=== PATIENT | male | born 1980 | race Caucasian/White ===

== ENCOUNTER 2016-06-08 18:37 | Emergency (ER) | payer MEDICARE ==
[2016-06-08 19:22] VITALS: BP 120/81
--- NOTE | 2016-06-08 19:59 | UC ---
Ear Complaint HPI - HPI Summary HPI Summary: RIGHT EAR DISCOMFORT X 2 DAYS CANNOT HEAR FROM HIS RIGHT EAR NO EAR PAIN NO UR SX - History of Current Complaint Chief Complaint: UCEar Stated Complaint: RIGHT EAR PAIN Time Seen by Provider: 06/08/16 19:42 Hx Obtained From: Patient Onset/Duration: Gradual Onset, Lasting Days - 2, Still Present Severity Initially: Moderate Severity Currently: Moderate Associated Signs/Symptoms: Positive: Hearing Loss - RIGHT EAR. Negative: Foreign Body Sensation, Trauma to Ear, Swelling @, URI Symptoms - Allergies/Home Medications Allergies/Adverse Reactions: Allergies Allergy/AdvReac Type Severity Reaction Status Date / Time Penicillins Allergy Unknown Unknown Verified 06/08/16 19:22 Reaction Details Home Medications: Home Medications Atorvastatin* [Lipitor*] 10 mg PO DAILY 06/08/16 [History Confirmed 06/08/16] Lisinopril TAB* [Prinivil TAB*] 10 mg PO DAILY 06/08/16 [History Confirmed 06/08] metFORMIN* [Glucophage*] 500 mg PO BID 06/08/16 [History Confirmed 06/08/16] PMH/Surg Hx/FS Hx/Imm Hx Endocrine History Of: Reports: Diabetes Cardiovascular History Of: Reports: Hypertension - Surgical History Surgical History: Yes Surgery Procedure, Year, and Place: glaucoma valves--bilat - Family History Known Family History: Negative: Diabetes - Social History Alcohol Use: None Substance Use Type: None Smoking Status (MU): Never Smoked Tobacco Household Exposure Type: Cigarettes - Immunization History Most Recent Influenza Vaccination: none Review of Systems Constitutional: Negative Skin: Negative ENT: Other - DIFFICULTY HEARING RIGHT EAR Respiratory: Negative Cardiovascular: Negative Gastrointestinal: Negative Genitourinary: Negative All Other Systems Reviewed And Are Negative: Yes Physical Exam Triage Information Reviewed: Yes Appearance: Well-Appearing, No Pain Distress, Well-Nourished Vital Signs: Initial Vital Signs Temp 97.7 F 06/08/16 19:16 Pulse 82 06/08/16 19:16 Resp 17 06/08/16 19:16 BP 120/81 06/08/16 19:16 Pulse Ox 100 06/08/16 19:16 Eye Exam: Normal ENT Exam: Normal ENT: Positive: Pharynx normal, TMs normal, Other: - CERUMEN IMPACTION R MORE THAN LEFT. Negative: Hearing grossly normal, Nasal congestion, Nasal drainage Neck: Positive: Supple, Nontender, No Lymphadenopathy Respiratory: Positive: Chest non-tender, Lungs clear, Normal breath sounds Cardiovascular: Positive: RRR, No Murmur, Pulses Normal Ear Complaint Course/Dx - Differential Dx/Diagnosis Provider Diagnoses: CERUMEN IMPACTION Discharge - Discharge Plan Condition: Stable Disposition: HOME Patient Education Materials: Cerumen Impaction (ED) Additional Instructions: FOLLOW UP NEEDED
== END 2016-06-08 19:58 | disposition home or self-care (01) ==
LOC: UCCORT 18:37
DX: H61.23 Impacted cerumen, bilateral (principal); I10 Essential (primary) hypertension; E11.9 Type 2 diabetes mellitus without complications; Z88.0 Allergy status to penicillin
CPT/HCPCS: 99203; G0463

== ENCOUNTER 2018-12-11 14:02 | Emergency (ER) | payer MEDICARE ==
--- OUTSIDE RECORDS SUMMARY | 2018-12-11 14:14 | XMS REPORT | Continuity of Care Document ---
:1980 External Reference #:[id number] Author Name Enrrique Martínez MD Address [address] [facility] [place] [address] Care Team Providers Name Role Phone Brigette Ashley MD. Care Team Information Diabetes Solutions Specialist Unavailable Sandeep Burch MD Primary Care Physician Unavailable Payers Date Identification Numbers Payment Provider Subscriber Policy Number: [id number] Medicare Part B Luigi Escobedo PayID: [id number] [address] [place] [address] Problems Active Problems Provider Date Open-angle glaucoma - borderline Enrrqiue Martínez MD Onset: 10/29/2018 Essential hypertension Enrrique Martínez MD Onset: 10/29/2018 Hypercholesterolemia Enrrique Martínez MD Onset: 10/29/2018 Type 2 diabetes mellitus Enrrique Martínez MD Onset: 10/29/2018 Social History Type Date Description Comments Sex Unknown Tobacco Use Start: Unknown Patient has never smoked Smoking Status Reviewed: 12/06/18 Patient has never smoked Allergies, Adverse Reactions, Alerts Active Allergies Reaction Severity Comments Date Penicillin 10/29/2018 Combigan 10/29/2018 Medications Active Medications SIG Qnty Indications Ordering Provider Date Ocuflox 1 drop in the 5units Enrrique Martínez, 10/29/2018 0.3% Solution right eye four MD times a day Pred Forte 1 drop right 10ml Enrrique Martínez, 10/29/2018 1% Suspension eye 4 x day Metformin HCL Burch, 1000mg Sandeep ESCOBEDO Tablets Lisinopril-Hydrochloro Burch, thiazide Sandeep ESCOBEDO 20-12.5mg Tablets Atorvastatin Calcium Burch, 10mg Sandeep ESCOBEDO Tablets Vital Signs Date Vital Result Comment 12/06/2018 8:51am Intraocular Pressure Right Eye 19 mmHg Tp 08:52 Am Intraocular Pressure Left Eye 16 mmHg Tp 08:52 Am 11/29/2018 9:11am Intraocular Pressure Right Eye 19 mmHg Tp 09:12 Am Intraocular Pressure Left Eye 15 mmHg 10/29/2018 9:22am Intraocular Pressure Right Eye 15 mmHg Intraocular Pressure Left Eye 9 mmHg tp 9:22 am Procedures Date Code Description Status 11/28/2018 09980 REM [place] Epith;W/Application Of Chelating Agent OD Completed 10/29/2018 16583 Exam Comprehensive, New PT Completed 09/15/2014 92294 Scleral Reinforce;W/Graft OD Completed 09/15/2014 87875 Removal Of Implanted Material,Post Segment;Extraocular OD Completed 09/15/2014 69520 Aqueous Shunt Extraocular Reservr Completed 08/31/2014 47821 Exam, Intermediate Est PT Completed 05/01/2013 07299 Scleral Reinforce;W/Graft OS Completed 05/01/2013 96834 Aqueous Shunt Extraocular Reservr Completed 04/25/2013 72420 Gonioscopy W/Med Diag Eval Completed 06/12/2012 05041 Gonioscopy W/Med Diag Eval Completed 06/12/2012 95722 Scleral Reinforce;W/Graft OD Completed 06/12/2012 45966 Aqueous Shunt Extraocular Reservr Completed Encounters Type Date Location Provider Dx Diagnosis Office Visit 09/07/2014 Main Office [place] U[facility]ia Devincentis 365.11 Glaucoma Primary 1:45p III Open Angle 365.73 Severe Stage Glaucoma Office Visit 06/12/2012 11:00a Main Office [place] 365.02 Glaucoma Gu[place]upe ESCOBEDO Anatomical Narrow Angle 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
--- OUTSIDE RECORDS SUMMARY | 2018-12-11 14:14 | XMS REPORT | Continuity of Care Document ---
:1980 External Reference #:[id number] Author Name Enrrique Martínez MD Address [address] [facility] [place] [address] Care Team Providers Name Role Phone Brigette Ashley MD. Care Team Information Recreation Superintendent Unavailable Sandeep Burch MD Primary Care Physician Unavailable Payers Date Identification Numbers Payment Provider Subscriber Policy Number: [id number] Medicare Part B Luigi Escobedo PayID: [id number] [address] [place] [address] Problems Active Problems Provider Date Open-angle glaucoma - borderline Enrrique Martínez MD Onset: 10/29/2018 Essential hypertension Enrrique [...] Ocuflox 1 drop in the 5units Enrrique Martínez 10/29/2018 0.3% Solution right eye four MD times a day Pred Forte 1 drop right 10ml Enrrique Martínez 10/29/2018 1% Suspension eye 4 x day Metformin HCL Burch, 1000mg Sandeep ESCOBEDO Tablets Lisinopril-Hydrochloro Burch, thiazide Sandeep ESCOBEDO 20-12.5mg Tablets Atorvastatin Calcium Burch, 10mg Sandeep ESCOBEDO Tablets Vital Signs Date Vital Result Comment 12/09/2018 2:15pm Intraocular Pressure Right Eye 17 mmHg Tp 02:15 PM Intraocular Pressure Left Eye 17 mmHg 12/06/2018 8:51am Intraocular Pressure Right Eye 19 mmHg Tp 08:52 Am Intraocular Pressure Left Eye 16 mmHg Tp 08:52 Am 11/29/2018 9:11am Intraocular Pressure Right Eye 19 mmHg Tp 09:12 Am Intraocular Pressure Left Eye 15 mmHg 10/29/2018 9:22am Intraocular Pressure Right Eye 15 mmHg Intraocular Pressure Left Eye 9 mmHg tp 9:22 am Procedures Date Code Description Status 11/28/2018 06118 REM [place] Epith;W/Application Of Chelating Agent OD Completed 10/29/2018 27566 Exam Comprehensive, New PT Completed 09/15/2014 65060 Scleral Reinforce;W/Graft OD Completed 09/15/2014 12233 Removal Of Implanted Material,Post Segment;Extraocular OD Completed 09/15/2014 37213 Aqueous Shunt Extraocular Reservr Completed 08/31/2014 96448 Exam, Intermediate Est PT Completed 05/01/2013 45992 Scleral Reinforce;W/Graft OS Completed 05/01/2013 29021 Aqueous Shunt Extraocular Reservr Completed 04/25/2013 72141 Gonioscopy W/Med Diag Eval Completed 06/12/2012 91560 Gonioscopy W/Med Diag Eval Completed 06/12/2012 74407 Scleral Reinforce;W/Graft OD Completed 06/12/2012 77511 Aqueous Shunt Extraocular Reservr Completed Encounters Type Date Location Provider Dx Diagnosis Office Visit 09/07/2014 Main Office [place] [facility]ia DeVincentis 365.11 Glaucoma Primary 1:45p III Open Angle 365.73 Severe Stage Glaucoma Office Visit 06/12/2012 11:00a Main Office [facility] [place] 365.02 Glaucoma Guadalupe ESCOBEDO Anatomical Narrow Angle 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
--- OUTSIDE RECORDS SUMMARY | 2018-12-11 14:14 | XMS REPORT | Continuity of Care Document ---
:1980 External Reference #:[id number] Author Name Ernrique Martínez MD Address [address] [facility] [place] [address] Care Team Providers Name Role Phone Brigette Ashley MD. Care Team Information Seat Coverer Unavailable Sandeep Burch MD Primary Care Physician Unavailable Payers Date Identification Numbers Payment Provider Subscriber Policy Number: [id number] Medicare Part B Luigi Escobedo PayID: [id number] [address] [place] [address] Problems Active Problems Provider Date Open-angle glaucoma - borderline Enrrique Martínez MD Onset: 10/29/2018 Essential hypertension Enrrique Martínez MD Onset: 10/29/2018 Hypercholesterolemia Enrrique Martínez MD Onset: 10/29/2018 Type 2 diabetes mellitus Enrrique Martínez MD Onset: 10/29/2018 Social History Type Date Description Comments Sex Unknown Tobacco Use Start: Unknown Patient has never smoked Smoking Status Reviewed: 10/29/18 Patient has never smoked Allergies, Adverse Reactions, [...] Tablets Vital Signs Date Vital Result Comment 11/29/2018 9:11am Intraocular Pressure Right Eye 19 mmHg Tp 09:12 Am Intraocular Pressure Left Eye 15 mmHg 10/29/2018 9:22am Intraocular Pressure Right Eye 15 mmHg Intraocular Pressure Left Eye 9 mmHg tp 9:22 am Procedures Date Code Description Status 10/29/2018 26896 Exam Comprehensive, New PT Completed 09/15/2014 18245 Scleral Reinforce;W/Graft OD Completed 09/15/2014 26285 Removal Of Implanted Material,Post Segment;Extraocular OD Completed 09/15/2014 59845 Aqueous Shunt Extraocular Reservr Completed 08/31/2014 37249 Exam, Intermediate Est PT Completed 05/01/2013 28515 Scleral Reinforce;W/Graft OS Completed 05/01/2013 62949 Aqueous Shunt Extraocular Reservr Completed 04/25/2013 57235 Gonioscopy W/Med Diag Eval Completed 06/12/2012 88412 Gonioscopy W/Med Diag Eval Completed 06/12/2012 26660 Scleral Reinforce;W/Graft OD Completed 06/12/2012 81067 Aqueous Shunt Extraocular Reservr Completed Encounters Type Date Location Provider Dx Diagnosis Office Visit 09/07/2014 Main Office [place] [facility] Devincentis 365.11 Glaucoma Primary 1:45p III Open Angle 365.73 Severe Stage Glaucoma Office Visit 06/12/2012 11:00a Main Office [facility] [place] 365.02 Glaucoma Guadalupe ESCOBEDO Anatomical Narrow Angle 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
--- OUTSIDE RECORDS SUMMARY | 2018-12-11 14:15 | XMS REPORT | Continuity of Care Document ---
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 Obesity Onset: 03/17/2012 Ischemic heart disease Onset: 03/17/2012 Migraine with typical aura Onset: 12/11/2011 Nuclear senile cataract Onset: 12/11/2011 Social History Type Date Description Comments Sex Unknown Marital Status Single Lives With Father Lives With Older Brother Occupation Unemployed Tobacco Use Start: Unknown Never Smoked Cigarettes ETOH Use Denies alcohol use Tobacco Use Start: Unknown Patient has never smoked Smoking Status Reviewed: 11/15/18 Patient has never smoked Allergies, Adverse Reactions, Alerts Active Allergies Reaction Severity Comments Date Penicillins 05/17/2018 Medications Active Medications SIG Qnty Indications Ordering Provider Date Levothyroxine Sodium 1 by mouth every 30tabs E03.9 Sandeep 05/31/2018 day MD Marcin 25mcg Tablets Vitamin D 1 weekly 12caps Sandeep 05/17/2018 (Ergocalciferol) MD Marcin [id number] Capsules Metformin HCL 1 by mouth twice 60tabs E11.9 Sandeep 08/14/2017 1000mg a day MD Marcin Tablets Lisinopril-Hydrochloro 1 by mouth every 90tabs E11.9 Sandeep 11/17/2014 thiazide day MD Marcin 20-12.5mg Tablets Lipitor one tablet every 30tabs E78.0 Sandeep 12/18/2011 10mg Tablets evening MD Marcin Durezol Instill One Drop Unknown 0.05% Emulsion In Each Eye Once Daily Dorzolamide Instill One Drop Unknown HCL/Timolol Maleate In Each Eye Two Times A Day 22.3-6.8mg/ml Solution History Medications Levothyroxine Sodium 1 by mouth 30tabs Sandeep Burch 05/17/2018 - every day 05/31/2018 75mcg Tablets Levothyroxine Sodium 1 by mouth 30tabs Sandeep Burch 11/25/2017 - every day 02/13/2018 25mcg Tablets Levothyroxine Sodium 1 by mouth 30tabs Sandeep Burch 09/28/2017 - every day 11/25/2017 50mcg Tablets Lisinopril-Hydrochlor 1 by mouth 30tabs 250.00 Sandeep Burch 2013 - othiazide every day 11/17/2014 10-12.5mg Tablets Bleph-10 2 drops to 5units 372.00 Sandeep Burch 06/03/2012 - 10% Solution right eye 07/16/2012 every 6 hours as needed Lisinopril 1 po qd 30tabs 401.9 Sandeep Burch 06/03/2012 - 10mg Tablets 11/12/2013 Metformin HCL two in in the 90tabs E11.9 Sandeep Burch 12/18/2011 - 500mg morning and 08/14/2017 Tablets one in at night Bystolic one daily 30tabs 401.9 Sandeep Burch 12/18/2011 - 5mg Tablets 06/03/2012 Bromfenac Sodium Instill One Unknown - (Once-Daily) Drop In Each 08/14/2017 0.09% Eye Once Daily Solution Azopt Gabi - 1% Suspension MD Brigette 11/13/2017 Timolol Maleate Gabi - 0.5% MD Brigette 11/13/2017 Solution Immunizations CPT Code Status Date Vaccine Lot # [id number] Given 12/11/2011 Tdap - Tetanus/Diptheria/Acellular Pertussis Vital Signs Date Vital Result Comment 11/15/2018 10:39am Height 68 inches 5'8" Weight 219.00 lb Heart Rate 79 /min Body Temperature 97.0 F BMI (Body Mass Index) 33.3 kg/m2 07/24/2018 2:44pm Weight 220.00 lb BP Systolic 156 mmHg brought list BP Diastolic 100 mmHg brought list 05/31/2018 9:46am Height 68.5 inches 5'8.50" Weight 217.00 lb Heart Rate 70 /min BP Systolic 152 mmHg BP Diastolic 100 mmHg Respiratory Rate 16 /min O2 % BldC Oximetry 97 % BMI (Body Mass Index) 32.5 kg/m2 02/13/2018 11:26am Weight 214.00 lb BP Systolic 146 mmHg BP Diastolic 90 mmHg 11/13/2017 10:39am Weight 217.00 lb BP Systolic 120 mmHg BP Diastolic 68 mmHg 08/14/2017 11:27am Weight 222.00 lb BP Systolic 122 mmHg BP Diastolic 78 mmHg 05/16/2017 10:25am Height 68.50 inches Weight 218.00 lb Heart Rate 68 /min BP Systolic 110 mmHg BP Diastolic 82 mmHg Respiratory Rate 16 /min BMI (Body Mass Index) 32.7 kg/m2 02/01/2017 10:44am Weight 215.00 lb BP Systolic 120 mmHg BP Diastolic 80 mmHg 11/01/2016 10:30am Weight 213.00 lb BP Systolic 112 mmHg BP Diastolic 80 mmHg 08/01/2016 10:46am Weight 211.50 lb BP Systolic 110 mmHg BP Diastolic 72 mmHg 05/03/2016 10:37am Height 68.25 inches Weight 207.00 lb Heart Rate 64 /min BP Systolic 118 mmHg BP Diastolic 80 mmHg Respiratory Rate 16 /min Body Temperature 96.9 F BMI (Body Mass Index) 31.2 kg/m2 01/27/2016 11:08am Weight 207.00 lb BP Systolic 102 mmHg BP Diastolic 80 mmHg 10/28/2015 11:05am Weight 206.50 lb BP Systolic 98 mmHg BP Diastolic 80 mmHg 07/29/2015 10:32am Weight 197.00 lb BP Systolic 108 mmHg BP Diastolic 72 mmHg 04/29/2015 10:10am Height 68.25 inches Weight 198.00 lb Heart Rate 76 /min BP Systolic 128 mmHg BP Diastolic 82 mmHg Respiratory Rate 16 /min Body Temperature 97.2 F BMI (Body Mass Index) 29.9 kg/m2 02/17/2015 10:37am Weight 201.00 lb BP Systolic 110 mmHg BP Diastolic 82 mmHg 11/17/2014 10:39am Weight 199.00 lb BP Systolic 126 mmHg BP Diastolic 84 mmHg 08/18/2014 10:25am Weight 194.00 lb BP Systolic 106 mmHg BP Diastolic 80 mmHg 05/19/2014 11:18am Weight 192.00 lb BP Systolic 120 mmHg BP Diastolic 82 mmHg 02/12/2014 10:35am Weight 182.00 lb BP Systolic 122 mmHg BP Diastolic 70 mmHg 11/12/2013 11:15am Weight 180.00 lb BP Systolic 142 mmHg BP Diastolic 94 mmHg 04/28/2013 2:28pm Height 68 inches Weight 160.00 lb BP Systolic 110 mmHg BP Diastolic 90 mmHg Body Temperature 95.5 F BMI (Body Mass Index) 24.3 kg/m2 02/12/2013 10:45am Weight 173.00 lb BP Systolic 120 mmHg BP Diastolic 80 mmHg 11/12/2012 3:28pm Height 67.75 inches Weight 180.00 lb Heart Rate 72 /min BP Systolic 140 mmHg BP Diastolic 100 mmHg Respiratory Rate 16 /min Body Temperature 97.5 F BMI (Body Mass Index) 27.6 kg/m2 09/16/2012 12:55pm Weight 181.00 lb BP Systolic 120 mmHg BP Diastolic 88 mmHg 07/15/2012 12:52pm Weight 184.00 lb BP Systolic 120 mmHg BP Diastolic 60 mmHg 06/03/2012 1:03pm Weight 195.00 lb BP Systolic 146 mmHg BP Diastolic 90 mmHg 03/04/2012 1:20pm Weight 205.00 lb BP Systolic 130 mmHg BP Diastolic 90 mmHg 01/22/2012 1:06pm Weight 216.00 lb BP Systolic 136 mmHg BP Diastolic 90 mmHg 01/01/2012 1:37pm Weight 214.00 lb BP Systolic 140 mmHg BP Diastolic 90 mmHg 12/18/2011 1:54pm Height 67.50 inches Weight 216.50 lb Heart Rate 88 /min BP Systolic 130 mmHg BP Diastolic 98 mmHg Respiratory Rate 12 /min Body Temperature 97.6 F BMI (Body Mass Index) 33.4 kg/m2 12/11/2011 11:04am Height 67.50 inches Weight 217.50 lb BP Systolic 130 mmHg BP Diastolic 92 mmHg BMI (Body Mass Index) 33.6 kg/m2 Results Test Date Facility Test Result H/L Range Note Poc Urinalysis 07/15/2018 [facility] Poc Glucose, Negative Negative [address] [place] [id number] [phone] Poc Bilirubin, Urine 1+ Abnormal Negative Poc Ketone, Urine Negative Negative Poc Specific [place], Urine >=1.030 N 1.010-1.030 Poc Blood, Urine 3+ Abnormal Negative Poc pH, Urine 5.5 N 5-9 Poc Protein, Urine 2+ Abnormal Negative Poc Urobilinogen, Urine 0.2 Negative Poc Nitrite, Urine Negative Negative Poc Leukocytes, Urine Negative Negative Poc Color, Urine Brown Poc Clarity, Urine Cloudy 1 Laboratory test finding 05/09/2018 N2N/CCD Import Free T4 0.78 ng/dL 0.76-1.46 2 Reflex add FT3? N Reflex add FT4? Y Thyroid Stim Hormone 12.40 uIU/mL High 0.3-4.2 Vitamin D,25-Hydroxy 13.4 ng/mL Low 30-100 3 CBC 05/09/2018 N2N/CCD Import Hematocrit 41.6 % 38-48 Hemoglobin 14.0 gm/dL 12.8-17 Mean Cell Volume 90.4 fl 80-96 Mean Corpuscular HGB 30.4 pg 27-33 Mean Corpuscular HGB Conc 33.7 g/dL 31.7-36 Mean Platelet Volume 10.9 fL High 6.6-10.6 Platelet Count 290 K/uL 155-360 Red Blood Count 4.60 M/uL 4.2-5.8 Red Cell Distri Width %CV 13.3 % 11.6-15.8 White Blood Count 8.6 K/uL 3.4-10.5 Comprehensive Metabolic Panel 05/09/2018 N2N/CCD Import Alb/Glob 0.9 ratio Albumin 3.6 g/dL 3.4-5 Alkaline Phosphatase 103 U/L 45-117 Anion Gap 7 mEq/L Low 8-16 BUN 23 mg/dL High 7-18 BUN/Creat 19.1 ratio Bilirubin,Total 0.4 mg/dL 0.2-1 Calcium 8.5 mg/dL 8.5-10.1 Carbon Dioxide 26 mmol/L 21-32 Chloride 107 mmol/L 98-107 Creatinine 1.2 mg/dL 0.6-1.3 Globulin 4.0 g/dL 1.9-4.3 Glom Filtration Rate, Estimate >60 mL/min Glucose 94 mg/dL 74-106 If >60 mL/min 4 Potassium 3.9 mmol/L 3.5-5.1 Reflex add FT3? N Reflex add FT4? Y SGPT/Alt 32 U/L 12-78 Sgot/Ast 14 U/L Low 15-37 5 Sodium 140 mmol/L 136-145 Total Protein 7.6 g/dL 6.4-8.2 LDL Cholesterol Profile 05/09/2018 N2N/CCD Import Cholesterol 146 mg/dL 6 HDL Cholesterol 40 mg/dL 7 LDL-Cholesterol 75 mg/dL 8 Reflex add FT3? N Reflex add FT4? Y Triglycerides 154 mg/dL High 9 Microalbumin,Random Urine 05/09/2018 N2N/CCD Import Microalbumin,Urine < 5.0 mg/L Laboratory test finding 04/08/2018 N2N/CCD Import Free T4 0.98 0.76- ng/dL 1.46 Reflex add FT3? N Reflex add FT4? Y Thyroid Stim Hormone 6.00 uIU/mL High 0.3-4.2 Laboratory test finding 02/05/2018 N2N/CCD Import Free T3 3.83 pg/mL 2.18-3.98 10 Free T4 1.70 ng/dL High 0.76-1.46 Glycohemoglobin (A1c) 6.2 % 4.2-6.3 11 Reflex add FT3? Y Reflex add FT4? Y Thyroid Stim Hormone < 0.01 uIU/mL Low 0.3-4.2 eAG 131 mg/dL Comprehensive Metabolic Panel 02/05/2018 N2N/CCD Import Alb/Glob 0.9 ratio Albumin 3.7 g/dL 3.4-5 Alkaline Phosphatase 110 U/L 45-117 Anion Gap 7 mEq/L Low 8-16 BUN 22 mg/dL High 7-18 BUN/Creat 18.3 ratio Bilirubin,Total 0.3 mg/dL 0.2-1 Calcium 9.2 mg/dL 8.5-10.1 Carbon Dioxide 26 mmol/L 21-32 Chloride 108 mmol/L High 98-107 Creatinine 1.2 mg/dL 0.6-1.3 Globulin 4.0 g/dL 1.9-4.3 Glom Filtration Rate, Estimate >60 mL/min Glucose 100 mg/dL 74-106 If >60 mL/min 12 Potassium 4.3 mmol/L 3.5-5.1 Reflex add FT3? Y Reflex add FT4? Y SGPT/Alt 30 U/L 12-78 Sgot/Ast 14 U/L Low 15-37 13 Sodium 141 mmol/L 136-145 Total Protein 7.7 g/dL 6.4-8.2 LDL Cholesterol Profile 02/05/2018 N2N/CCD Import Cholesterol 125 mg/dL 14 HDL Cholesterol 36 mg/dL Low 15 LDL-Cholesterol 57 mg/dL 16 Reflex add FT3? Y Reflex add FT4? Y Triglycerides 162 mg/dL High 17 Microalbumin,Random 02/05/2018 N2N/CCD Import Microalbumin,Urine 10.6 Urine mg/L Laboratory test finding 11/15/2017 N2N/CCD Import Free T4 1.60 High 0.76 ng/dL -1.4 6 Reflex add FT4? Y Thyroid Stim Hormone 0.05 uIU/mL Low 0.3-4.2 Laboratory test 11/06/2017 N2N/CCD Import Glycohemoglobin 6.6 % High 4.2- 6.3 18, 19 finding (A1c) eAG 143 mg/dL Comprehensive Metabolic Panel 11/06/2017 N2N/CCD Import Alb/Glob 0.9 ratio Albumin 3.5 g/dL 3.4-5 Alkaline Phosphatase 101 U/L 45-117 Anion Gap 9 mEq/L 8-16 BUN 22 mg/dL High 7-18 BUN/Creat 20.0 ratio Bilirubin,Total 0.3 mg/dL 0.2-1 Calcium 8.7 mg/dL 8.5-10.1 Carbon Dioxide 24 mmol/L 21-32 Chloride 109 mmol/L High 98-107 Creatinine 1.1 mg/dL 0.6-1.3 Globulin 3.9 g/dL 1.9-4.3 Glom Filtration Rate, Estimate >60 mL/min Glucose 120 mg/dL High 74-106 If >60 mL/min 20 Potassium 4.3 mmol/L 3.5-5.1 SGPT/Alt 24 U/L 12-78 Sgot/Ast 11 U/L Low 15-37 21 Sodium 142 mmol/L 136-145 Total Protein 7.4 g/dL 6.4-8.2 Microalbumin,Random 11/06/2017 N2N/CCD Import Microalbumin,Urine 11.3 Urine mg/L Laboratory test finding 08/03/2017 N2N/CCD Import Free T3 2.11 Low 2.18 22 pg/mL -3.9 8 Free T4 0.88 ng/dL 0.76-1.46 Glycohemoglobin (A1c) 7.1 % High 4.2-6.3 23 Reflex add FT3? Y Reflex add FT4? Y Thyroid Stim Hormone 8.79 uIU/mL High 0.3-4.2 eAG 157 mg/dL CBC 08/03/2017 N2N/CCD Import Hematocrit 40.3 % 38-48 Hemoglobin 13.5 gm/dL 12.8-17 Mean Cell Volume 90.0 fl 80-96 Mean Corpuscular HGB 30.1 pg 27-33 Mean Corpuscular HGB Conc 33.5 g/dL 31.7-36 Mean Platelet Volume 11.7 fL High 6.6-10.6 Platelet Count 244 K/uL 155-360 Red Blood Count 4.48 M/uL 4.2-5.8 Red Cell Distri Width %CV 12.7 % 11.6-15.8 White Blood Count 8.0 K/uL 3.4-10.5 Comprehensive Metabolic Panel 08/03/2017 N2N/CCD Import Alb/Glob 0.9 ratio Albumin 3.5 g/dL 3.4-5 Alkaline Phosphatase 87 U/L 45-117 Anion Gap 6 mEq/L Low 8-16 BUN 18 mg/dL 7-18 BUN/Creat 20.0 ratio Bilirubin,Total 0.3 mg/dL 0.2-1 Calcium 8.9 mg/dL 8.5-10.1 Carbon Dioxide 27 mmol/L 21-32 Chloride 106 mmol/L 98-107 Creatinine 0.9 mg/dL 0.6-1.3 Globulin 3.7 g/dL 1.9-4.3 Glom Filtration Rate, Estimate >60 mL/min Glucose 153 mg/dL High 74-106 If >60 mL/min 24 Potassium 4.7 mmol/L 3.5-5.1 Reflex add FT3? Y Reflex add FT4? Y SGPT/Alt 26 U/L 12-78 Sgot/Ast 13 U/L Low 15-37 25 Sodium 139 mmol/L 136-145 Total Protein 7.2 g/dL 6.4-8.2 LDL Cholesterol Profile 08/03/2017 N2N/CCD Import Cholesterol 111 mg/dL 26 HDL Cholesterol 40 mg/dL 27 LDL-Cholesterol 39 mg/dL 28 Reflex add FT3? Y Reflex add FT4? Y Triglycerides 159 mg/dL High 29 Laboratory test 04/26/2017 N2N/CCD Import Glycohemoglobin 7.1 % High 4.2- 6.3 30, 31 finding (A1c) eAG 157 mg/dL Basic Metabolic Panel 04/26/2017 N2N/CCD Import Anion Gap 6 mEq/L Low 8- 16 BUN 24 mg/dL High 7-18 BUN/Creat 20.0 ratio Calcium 8.7 mg/dL 8.5-10.1 Carbon Dioxide 26 mmol/L 21-32 Chloride 106 mmol/L 98-107 Creatinine 1.2 mg/dL 0.6-1.3 Glom Filtration Rate, Estimate >60 mL/min Glucose 151 mg/dL High 74-106 If >60 mL/min 32 Potassium 4.2 mmol/L 3.5-5.1 Sodium 138 mmol/L 136-145 LDL Cholesterol Profile 04/26/2017 N2N/CCD Import Cholesterol 115 mg/dL 33 HDL Cholesterol 42 mg/dL 34 LDL-Cholesterol 44 mg/dL 35 Triglycerides 147 mg/dL 36 Microalbumin,Random 04/26/2017 N2N/CCD Import Microalbumin,Urine 11.3 Urine mg/L Laboratory test finding 01/23/2017 N2N/CCD Import Glycohemoglobin (A1c) 6.6 % High 4.2 37, -6. 38 3 eAG 143 mg/dL Basic Metabolic Panel 01/23/2017 N2N/CCD Import Anion Gap 8 mEq/L 8-16 BUN 20 mg/dL High 7-18 BUN/Creat 18.1 ratio Calcium 9.0 mg/dL 8.5-10.1 Carbon Dioxide 25 mmol/L 21-32 Chloride 108 mmol/L High 98-107 Creatinine 1.1 mg/dL 0.6-1.3 Glom Filtration Rate, Estimate >60 mL/min Glucose 119 mg/dL High 74-106 If >60 mL/min 39 Potassium 4.4 mmol/L 3.5-5.1 Sodium 141 mmol/L 136-145 Microalbumin,Random 01/23/2017 N2N/CCD Import Microalbumin,Urine 19.5 Urine mg/L Laboratory test finding 10/23/2016 N2N/CCD Import Glycohemoglobin (A1c) 6.6 % High 4.2 40 -6. 3 eAG 143 mg/dL Microalbumin,Random 10/23/2016 N2N/CCD Import Microalbumin,Urine 9.4 Urine mg/L Laboratory test finding 07/24/2016 N2N/CCD Import Glycohemoglobin (A1c) 7.2 % High 4.2 41 -6. 3 eAG 160 mg/dL Comprehensive Metabolic Panel 07/24/2016 N2N/CCD Import Alb/Glob 0.9 ratio Albumin 3.6 g/dL 3.4-5 Alkaline Phosphatase 122 U/L High 45-117 Anion Gap 8 mEq/L 8-16 BUN 20 mg/dL High 7-18 BUN/Creat 18.1 ratio Bilirubin,Total 0.3 mg/dL 0.2-1 Calcium 8.6 mg/dL 8.5-10.1 Carbon Dioxide 25 mmol/L 21-32 Chloride 106 mmol/L 98-107 Creatinine 1.1 mg/dL 0.6-1.3 Globulin 4.0 g/dL 1.9-4.3 Glom Filtration Rate, Estimate >60 mL/min Glucose 210 mg/dL High 74-106 If >60 mL/min 42 Potassium 4.4 mmol/L 3.5-5.1 SGPT/Alt 24 U/L 12-78 Sgot/Ast 9 U/L Low 15-37 43 Sodium 139 mmol/L 136-145 Total Protein 7.6 g/dL 6.4-8.2 Microalbumin,Random 07/24/2016 N2N/[employer] Import Microalbumin,Urine 27.0 Urine mg/L Laboratory test finding 04/25/2016 N2N/CCD Import Glycohemoglobin (A1c) 6.6 % High 4.2 44, -6. 45 3 eAG 143 mg/dL Comprehensive Metabolic Panel 04/25/2016 N2N/CCD Import Alb/Glob 0.9 ratio Albumin 3.7 g/dL 3.4-5 Alkaline Phosphatase 104 U/L 45-117 Anion Gap 8 mEq/L 8-16 BUN 22 mg/dL High 7-18 BUN/Creat 20.0 ratio Bilirubin,Total 0.3 mg/dL 0.2-1 Calcium 9.0 mg/dL 8.5-10.1 Carbon Dioxide 25 mmol/L 21-32 Chloride 105 mmol/L 98-107 Creatinine 1.1 mg/dL 0.6-1.3 Globulin 4.0 g/dL 1.9-4.3 Glom Filtration Rate, Estimate >60 mL/min Glucose 127 mg/dL High 74-106 If >60 mL/min 46 Potassium 4.6 mmol/L 3.5-5.1 SGPT/Alt 23 U/L 12-78 Sgot/Ast 13 U/L Low 15-37 47 Sodium 138 mmol/L 136-145 Total Protein 7.7 g/dL 6.4-8.2 LDL Cholesterol Profile 04/25/2016 N2N/CCD Import Cholesterol 110 mg/dL 48 HDL Cholesterol 39 mg/dL Low 49 LDL-Cholesterol 37 mg/dL 50 Triglycerides 169 mg/dL High 51 Microalbumin,Random Urine 04/25/2016 N2N/CCD Import Microalbumin,Urine 14.9 mg/L Laboratory test finding 01/19/2016 N2N/CCD Import @[facility] [place] Pat Id: [id number] @[facility] [place] Req #: [id number] 1 Glycohemoglobin (A1c) 6.8 % High 4.2-6.3 53 eAG 148 mg/dL Laboratory test 10/19/2015 N2N/CCD Import Glycohemoglobin (A1c) 6.6 % High 4.2-6.3 54 finding Microalbumin,Random Urine 22.1 mg/L eAG 143 mg/dL LDL Cholesterol Profile 10/19/2015 N2N/CCD Import Cholesterol 118 mg/dL 55 HDL Cholesterol 44 mg/dL 56 LDL-Cholesterol 49 mg/dL 57 Triglycerides 124 mg/dL 58 Comprehensive Metabolic Panel 10/19/2015 N2N/CCD Import Alb/Glob 0.9 ratio Albumin 3.7 g/dL 3.4-5 Alkaline Phosphatase 108 U/L 45-117 Anion Gap 5 mEq/L Low 8-16 BUN 17 mg/dL 7-18 BUN/Creat 15.4 ratio Bilirubin,Total 0.5 mg/dL 0.2-1 Calcium 9.0 mg/dL 8.5-10.1 Carbon Dioxide 27 mmol/L 21-32 Chloride 105 mmol/L 98-107 Creatinine 1.1 mg/dL 0.6-1.3 Globulin 3.9 g/dL 1.9-4.3 Glom Filtration Rate, Estimate >60 mL/min Glucose 110 mg/dL High 74-106 If >60 mL/min 59 Potassium 4.9 mmol/L 3.5-5.1 SGPT/Alt 27 U/L 12-78 Sgot/Ast 13 U/L Low 15-37 60 Sodium 137 mmol/L 136-145 Total Protein 7.6 g/dL 6.4-8.2 CBC 04/19/2015 N2N/[employer] Import Hematocrit 37.0 % Low 38-48 Hemoglobin 12.9 gm/dL 12.8-17 Mean Cell Volume 85.8 fl 80-96 Mean Corpuscular HGB 29.9 pg 27-33 Mean Corpuscular HGB Conc 34.9 g/dL 31.7-36 Mean Platelet Volume 11.3 fL High 6.6-10.6 Platelet Count 278 K/uL 150-400 Red Blood Count 4.31 M/uL 4.2-5.8 Red Cell Distri Width %CV 12.1 % 11.6-15.8 White Blood Count 7.7 K/uL 3.4-10.5 LDL Cholesterol Profile 04/19/2015 N2N/[employer] Import Cholesterol 85 mg/dL 61 HDL Cholesterol 33 mg/dL Low 62 LDL-Cholesterol 38 mg/dL 63 Triglycerides 72 mg/dL 64 Laboratory test 04/19/2015 N2N/CCD Import Glycohemoglobin (A1c) 6.5 % High 4.2-6.3 65 finding Microalbumin,Random Urine 31.8 mg/L eAG 140 mg/dL Laboratory test 02/08/2015 N2N/CCD Import Glycohemoglobin (A1c) 6.9 % High 4.2-6.3 66 finding eAG 151 mg/dL CBC 11/09/2014 N2N/[employer] Import Hematocrit 40.3 % 38-48 Hemoglobin 13.5 gm/dL 12.8-17 Mean Cell Volume 87.6 fl 80-96 Mean Corpuscular HGB 29.3 pg 27-33 Mean Corpuscular HGB Conc 33.5 g/dL 31.7-36 Mean Platelet Volume 11.5 fL High 6.6-10.6 Platelet Count 265 K/uL 150-400 Red Blood Count 4.60 M/uL 4.2-5.8 Red Cell Distri Width %CV 12.4 % 11.6-15.8 White Blood Count 8.1 K/uL 3.4-10.5 Comprehensive Metabolic Panel 11/09/2014 N2N/[employer] Import Alb/Glob 1.1 ratio Albumin 3.8 g/dL 3.4-5 Alkaline Phosphatase 102 U/L 45-117 Anion Gap 9 mEq/L 8-16 BUN 16 mg/dL 7-18 BUN/Creat 17.7 ratio Bilirubin,Total 0.4 mg/dL 0.2-1 Calcium 9.1 mg/dL 8.5-10.1 Carbon Dioxide 25 mmol/L 21-32 Chloride 104 mmol/L 98-107 Creatinine 0.9 mg/dL 0.6-1.3 Globulin 3.5 g/dL 1.9-4.3 Glom Filtration Rate, Estimate >60 mL/min Glucose 160 mg/dL High 74-106 If >60 mL/min 67 Potassium 4.4 mmol/L 3.5-5.1 SGPT/Alt 30 U/L 12-78 Sgot/Ast 12 U/L Low 15-37 68 Sodium 138 mmol/L 136-145 Total Protein 7.3 g/dL 6.4-8.2 LDL Cholesterol Profile 11/09/2014 N2N/[employer] Import Cholesterol 121 mg/dL 69 HDL Cholesterol 39 mg/dL 70 LDL-Cholesterol 55 mg/dL 71 Triglycerides 133 mg/dL 72 Laboratory test 11/09/2014 N2N/[employer] Import Glycohemoglobin (A1c) 6.5 % High 4.2-6.3 73 finding Microalbumin,Random Urine 45.3 mg/L eAG 140 mg/dL Laboratory test 08/07/2014 N2N/[employer] Import Glycohemoglobin (A1c) 7.0 % High 4.2-6.3 74 finding Microalbumin,Random Urine 20.5 mg/L eAG 154 mg/dL CBC 08/07/2014 N2N/[employer] Import Hematocrit 41.4 % 38-48 Hemoglobin 13.9 gm/dL 12.8-17 Mean Cell Volume 89.0 fl 80-96 Mean Corpuscular HGB 29.9 pg 27-33 Mean Corpuscular HGB Conc 33.6 g/dL 31.7-36 Mean Platelet Volume 11.6 fL High 6.6-10.6 Platelet Count 262 K/uL 150-400 Red Blood Count 4.65 M/uL 4.2-5.8 Red Cell Distri Width %CV 12.5 % 11.6-15.8 White Blood Count 8.0 K/uL 3.4-10.5 Comprehensive Metabolic Panel 08/07/2014 N2N/CCD Import Alb/Glob 1.1 ratio Albumin 3.8 g/dL 3.4-5 Alkaline Phosphatase 101 U/L 45-117 Anion Gap 4 mEq/L Low 8-16 BUN 23 mg/dL High 7-18 BUN/Creat 25.5 ratio Bilirubin,Total 0.3 mg/dL 0.2-1 Calcium 9.0 mg/dL 8.5-10.1 Carbon Dioxide 28 mmol/L 21-32 Chloride 107 mmol/L 98-107 Creatinine 0.9 mg/dL 0.6-1.3 Globulin 3.6 g/dL 1.9-4.3 Glom Filtration Rate, Estimate >60 mL/min Glucose 154 mg/dL High 74-106 If >60 mL/min 75 Potassium 4.4 mmol/L 3.5-5.1 SGPT/Alt 24 U/L 12-78 Sgot/Ast 9 U/L Low 15-37 76 Sodium 139 mmol/L 136-145 Total Protein 7.4 g/dL 6.4-8.2 LDL Cholesterol Profile 08/07/2014 N2N/CCD Import Cholesterol 101 mg/dL 77 HDL Cholesterol 35 mg/dL 78 LDL-Cholesterol 43 mg/dL 79 Triglycerides 116 mg/dL 80 Laboratory test 04/15/2014 N2N/CCD Import Glycohemoglobin (A1c) 6.3 % 4.2-6.3 81 finding Microalbumin,Random Urine 14.2 mg/L eAG 134 mg/dL Laboratory test 02/04/2014 N2N/CCD Import Glycohemoglobin (A1c) 6.5 % High 4.2-6.3 82 finding Microalbumin,Random Urine 32.6 mg/L eAG 140 mg/dL Comprehensive Metabolic Panel 02/04/2014 N2N/CCD Import Alb/Glob 1.1 ratio Albumin 4.0 g/dL 3.4-5 Alkaline Phosphatase 81 U/L 45-117 Anion Gap 10 mEq/L 8-16 BUN 18 mg/dL 7-18 BUN/Creat 20.0 ratio Bilirubin,Total 0.5 mg/dL 0.2-1 Calcium 9.6 mg/dL 8.5-10.1 Carbon Dioxide 28 mmol/L 21-32 Chloride 106 mmol/L 98-107 Creatinine 0.9 mg/dL 0.6-1.3 Globulin 3.5 g/dL 1.9-4.3 Glom Filtration Rate, Estimate >60 mL/min Glucose 127 mg/dL High 74-106 If >60 mL/min 83 Potassium 4.1 mmol/L 3.5-5.1 SGPT/Alt 21 U/L 12-78 Sgot/Ast 10 U/L Low 15-37 Sodium 140 mmol/L 136-145 Total Protein 7.5 g/dL 6.4-8.2 Laboratory test 05/09/2013 N2N/CCD Import Microalbumin,Random 28.1 mg/L High 0-18.5 finding Urine Comprehensive 05/09/2013 N2N/CCD Import Alb/Glob 1.1 ratio Metabolic Panel Albumin 3.6 g/dL 3.5-5 Alkaline Phosphatase 93 U/L 50-136 Anion Gap 8 mEq/L 8-16 BUN 14 mg/dL 5-23 BUN/Creat 20.0 ratio Bilirubin,Total 0.1 mg/dL Low 0.2-1.2 Calcium 8.7 mg/dL 8.5-10.1 Carbon Dioxide 27 mEq/L 18-29 Chloride 111 mmol/L High 98-107 Creatinine 0.7 mg/dL 0.5-1.4 Globulin 3.2 g/dL 1.9-4.3 Glom Filtration Rate, Estimate >60 mL/min Glucose 187 mg/dL High 76-115 If >60 mL/min 84 Potassium 3.9 mmol/L 3.5-5.1 SGPT/Alt 16 U/L Low 30-65 Sgot/Ast 5 U/L Low 16-40 Sodium 142 mmol/L 136-145 Total Protein 6.8 g/dL 6.3-8 LDL Cholesterol Profile 05/09/2013 N2N/CCD Import Cholesterol 105 mg/dL Low 120-200 HDL Cholesterol 44 mg/dL 29-83 LDL-Cholesterol 43 mg/dL Low 62-185 Triglycerides 91 mg/dL 16-231 Laboratory test 11/05/2012 N2N/CCD Import Glycohemoglobin (A1c) 5.8 % 4.8-6 85 finding eAG 120 mg/dL Basic Metabolic Panel 11/05/2012 N2N/CCD Import Anion Gap 14 mEq/L 8-16 BUN 13 mg/dL 5-23 BUN/Creat 14.4 ratio Calcium 9.5 mg/dL 8.5-10.1 Carbon Dioxide 27 mEq/L 18-29 Chloride 107 mmol/L 98-107 Creatinine 0.9 mg/dL 0.5-1.4 Glom Filtration Rate, Estimate >60 mL/min Glucose 144 mg/dL High 76-115 If >60 mL/min 86 Potassium 4.4 mmol/L 3.5-5.1 Sodium 144 mmol/L 136-145 LDL Cholesterol Profile 11/05/2012 N2N/CCD Import Cholesterol 95 mg/dL Low 120-200 HDL Cholesterol 36 mg/dL 83 LDL-Cholesterol 43 mg/dL Low 62-185 Triglycerides 82 mg/dL 16-231 Laboratory test 07/16/2012 N2N/CCD Import Microalbumin,Random 59.7 mg/L High 0-18.5 finding Urine Laboratory test 05/27/2012 N2N/CCD Import Anion Gap 11 mEq/L 8-16 finding BUN 10 mg/dL 5-23 BUN/Creat 12.5 ratio Calcium 9.3 mg/dL 8.5-10.1 Carbon Dioxide 28 mEq/L 18-29 Chloride 106 mmol/L 98-107 Creatinine 0.8 mg/dL 0.5-1.4 Glom Filtration Rate, Estimate >60 mL/min Glucose 124 mg/dL High 76-115 Glycohemoglobin (A1c) 7.0 % High 4.8-6 87 If >60 mL/min 88 Potassium 3.5 mmol/L 3.5-5.1 Sodium 141 mmol/L 136-145 eAG 154 mg/dL LDL Cholesterol Profile 05/27/2012 N2N/CCD Import Cholesterol 85 mg/dL Low 120-200 HDL Cholesterol 31 mg/dL 83 LDL-Cholesterol 31 mg/dL Low 62-185 Triglycerides 113 mg/dL 16-231 Laboratory test 12/12/2011 N2N/CCD Import Thyroid Stim 5.86 uIU/mL High 0.49-4.67 finding Hormone CBS W/Automated 12/12/2011 N2N/CCD Import Bas% 0.4 % 0.1-1 Diff Baso # 0.04 K/uL Low 0.1-0.2 Eo% 2.3 % 0-5 Eos # 0.26 K/uL 0-0.5 Hematocrit 47.0 % 38-48 Hemoglobin 16.1 gm/dL 12.8-17 Lymph # 3.76 K/uL 1.2-4 Lymph % 33.0 % 17-56 Mean Cell Volume 84.2 fl 80-96 Mean Corpuscular HGB 28.9 pg 27-33 Mean Corpuscular HGB Conc 34.3 g/dL 31.7-36 Mean Platelet Volume 11.9 fL High 6.6-10.6 [place] # 0.76 K/uL High 0-0.6 [place] % 6.7 % 0-10 Neut# 6.58 K/uL 1.8-7 Neut% 57.6 % 33-73 Platelet Count 298 K/uL 150-400 Red Blood Count 5.58 M/uL 4.2-5.8 Red Cell Distri Width %CV 12.9 % 11.6-15.8 Red Cell Distri Width SD 39.0 fl 36-51 White Blood Count 11.4 K/uL High 3.4-10.5 Comprehensive Metabolic Panel 12/12/2011 N2N/CCD Import Alb/Glob 0.9 ratio Albumin 3.7 g/dL 3.5-5 Alkaline Phosphatase 87 U/L 50-136 Anion Gap 14 mEq/L 8-16 BUN 10 mg/dL 5-23 BUN/Creat 11.1 ratio Bilirubin,Total 0.5 mg/dL 0.2-1.2 Calcium 9.3 mg/dL 8.5-10.1 Carbon Dioxide 27 mEq/L 18-29 Chloride 104 mmol/L 98-107 Creatinine 0.9 mg/dL 0.5-1.4 Globulin 4.1 g/dL 1.9-4.3 Glom Filtration Rate, Estimate >60 mL/min Glucose 272 mg/dL High 76-115 If >60 mL/min 89 Potassium 5.1 mmol/L 3.5-5.1 SGPT/Alt 49 U/L 30-65 Sgot/Ast 18 U/L 16-40 Sodium 140 mmol/L 136-145 Total Protein 7.8 g/dL 6.3-8 LDL Cholesterol 12/12/2011 N2N/CCD Import Cholesterol 230 mg/dL High 120- 200 Profile HDL Cholesterol 33 mg/dL 29-83 LDL-Cholesterol 161 mg/dL 62-185 Triglycerides 178 mg/dL 16-231 1 Manager Gaming: [id number] E11.9,I1O,E78.5,EO3.9,E66.3 3 Vitamin D deficiency has been defined by the [place] [employer] and an Endocrine Society practice guideline as a level of serum 25-OH vitamin D less than 20 ng/mL (1,2). The Endocrine Society went on to further define vitamin D insufficiency as a level between 21 and 29 ng/mL (2). 1. IOM ([place] [employer]). 2010. Dietary reference intakes for calcium and D. [place]: The National Academies Press. 2. Meng MF, Milad BOWEN, Cordell HOUSTON, et al. Evaluation, treatment, and prevention of vitamin D deficiency: an Endocrine Society clinical practice guideline. JCEM. 2010; 96(7):1911-30. Performed at: RN - [facility] [address] [id number] [place]ist: Tegan Lamas MD, Phone: [phone] 4 Note: Persistent reduction for 3 months or more in an eGFR <60 mL/min/1.73 m2 defines CKD. Patients with eGFR values >/=60 mL/min/1.73 m2 may also have CKD if evidence of persistent proteinuria is present. The original MDRD equation for estimated GFR is not valid for patients less than 18 years of age. Additional information may be found at [email or web address]. 5 Values below the stated reference ranges of AST and ALT can be seen in normal populations. Clinical correlation is suggested. 6 Reference Guidelines*: Desirable: ........... < 200 mg/dL Borderline High: ..... 200-239 mg/dL High: ................ >=240 mg/dL * The National Cholesterol Education Program (NCEP) 7 Reference Guidelines*: Low HDL: ..... < 40 mg/dL Normal: ..... 40-60 mg/dL Desirable: ... > 60 mg/dL *The National Cholesterol Education Program(NCEP) 8 Reference Guidelines*: Optimal:........... <100 mg/dL Near Optimal....... 100-129 mg/dL Borderline High.... 130-159 mg/dL High............... 160-189 mg/dL Very High.......... >=190 mg/dL * Source: National Cholesterol Education Program (NCEP) 9 Reference Guidelines*: Normal: ............. < 150 mg/dL Borderline High: .... 150-199 mg/dL High: ............... 200-499 mg/dL Very High: .......... > 500 mg/dL * Source: National Cholesterol Education Program (NCEP) 10 E11.9,E78.5,E03.9 11 Elevated levels of HbA1c suggest the need for more aggressive treatment of glycemia. The [place] [employer] recommends that a primary goal of therapy should be a HbA1c of <7% and that physicians should re-evaluate the treatment regimen in patients with HbA1c values consistently >8%. 12 Note: Persistent reduction for 3 months or more in an eGFR <60 mL/min/1.73 m2 defines CKD. Patients with eGFR values >/=60 mL/min/1.73 m2 may also have CKD if evidence of persistent proteinuria is present. The original MDRD equation for estimated GFR is not valid for patients less than 18 years of age. Additional information may be found at [email or web address]. 13 Values below the stated reference ranges of AST and ALT can be seen in normal populations. Clinical correlation is suggested. 14 Reference Guidelines*: Desirable: ........... < 200 mg/dL Borderline High: ..... 200-239 mg/dL High: ................ >=240 mg/dL * The National Cholesterol Education Program (NCEP) 15 Reference Guidelines*: Low HDL: ..... < 40 mg/dL Normal: ..... 40-60 mg/dL Desirable: ... > 60 mg/dL *The National Cholesterol Education Program(NCEP) 16 Reference Guidelines*: Optimal:........... <100 mg/dL Near Optimal....... 100-129 mg/dL Borderline High.... 130-159 mg/dL High............... 160-189 mg/dL Very High.......... >=190 mg/dL * Source: National Cholesterol Education Program (NCEP) 17 Reference Guidelines*: Normal: ............. < 150 mg/dL Borderline High: .... 150-199 mg/dL High: ............... 200-499 mg/dL Very High: .......... > 500 mg/dL * Source: National Cholesterol Education Program (NCEP) 18 E11.9, I10 19 Elevated levels of HbA1c suggest the need for more aggressive treatment of glycemia. The [place] [employer] recommends that a primary goal of therapy should be a HbA1c of <7% and that physicians should re-evaluate the treatment regimen in patients with HbA1c values consistently >8%. 20 Note: Persistent reduction for 3 months or more in an eGFR <60 mL/min/1.73 m2 defines CKD. Patients with eGFR values >/=60 mL/min/1.73 m2 may also have CKD if evidence of persistent proteinuria is present. The original MDRD equation for estimated GFR is not valid for patients less than 18 years of age. Additional information may be found at [email or web address]. 21 Values below the stated reference ranges of AST and ALT can be seen in normal populations. Clinical correlation is suggested. 22 E11.9, E78.5, Z68.32, Z00.01 23 Elevated levels of HbA1c suggest the need for more aggressive treatment of glycemia. The [place] [employer] recommends that a primary goal of therapy should be a HbA1c of <7% and that physicians should re-evaluate the treatment regimen in patients with HbA1c values consistently >8%. 24 Note: Persistent reduction for 3 months or more in an eGFR <60 mL/min/1.73 m2 defines CKD. Patients with eGFR values >/=60 mL/min/1.73 m2 may also have CKD if evidence of persistent proteinuria is present. The original MDRD equation for estimated GFR is not valid for patients less than 18 years of age. Additional information may be found at [email or web address]. 25 Values below the stated reference ranges of AST and ALT can be seen in normal populations. Clinical correlation is suggested. 26 Reference Guidelines*: Desirable: ........... < 200 mg/dL Borderline High: ..... 200-239 mg/dL High: ................ >=240 mg/dL * The National Cholesterol Education Program (NCEP) 27 Reference Guidelines*: Low HDL: ..... < 40 mg/dL Normal: ..... 40-60 mg/dL Desirable: ... > 60 mg/dL *The National Cholesterol Education Program(NCEP) 28 Reference Guidelines*: Optimal:........... <100 mg/dL Near Optimal....... 100-129 mg/dL Borderline High.... 130-159 mg/dL High............... 160-189 mg/dL Very High.......... >=190 mg/dL * Source: National Cholesterol Education Program (NCEP) 29 Reference Guidelines*: Normal: ............. < 150 mg/dL Borderline High: .... 150-199 mg/dL High: ............... 200-499 mg/dL Very High: .......... > 500 mg/dL * Source: National Cholesterol Education Program (NCEP) 30 I10, E11.9 31 Elevated levels of HbA1c suggest the need for more aggressive treatment of glycemia. The [place] [employer] recommends that a primary goal of therapy should be a HbA1c of <7% and that physicians should re-evaluate the treatment regimen in patients with HbA1c values consistently >8%. 32 Note: Persistent reduction for 3 months or more in an eGFR <60 mL/min/1.73 m2 defines CKD. Patients with eGFR values >/=60 mL/min/1.73 m2 may also have CKD if evidence of persistent proteinuria is present. The original MDRD equation for estimated GFR is not valid for patients less than 18 years of age. Additional information may be found at [email or web address]. 33 Reference Guidelines*: Desirable: ........... < 200 mg/dL Borderline High: ..... 200-239 mg/dL High: ................ >=240 mg/dL * The National Cholesterol Education Program (NCEP) 34 Reference Guidelines*: Low HDL: ..... < 40 mg/dL Normal: ..... 40-60 mg/dL Desirable: ... > 60 mg/dL *The National Cholesterol Education Program(NCEP) 35 Reference Guidelines*: Optimal:........... <100 mg/dL Near Optimal....... 100-129 mg/dL Borderline High.... 130-159 mg/dL High............... 160-189 mg/dL Very High.......... >=190 mg/dL * Source: National Cholesterol Education Program (NCEP) 36 Reference Guidelines*: Normal: ............. < 150 mg/dL Borderline High: .... 150-199 mg/dL High: ............... 200-499 mg/dL Very High: .......... > 500 mg/dL * Source: National Cholesterol Education Program (NCEP) 37 E11.9 38 Elevated levels of HbA1c suggest the need for more aggressive treatment of glycemia. The [place] [employer] recommends that a primary goal of therapy should be a HbA1c of <7% and that physicians should re-evaluate the treatment regimen in patients with HbA1c values consistently >8%. 39 Note: Persistent reduction for 3 months or more in an eGFR <60 mL/min/1.73 m2 defines CKD. Patients with eGFR values >/=60 mL/min/1.73 m2 may also have CKD if evidence of persistent proteinuria is present. The original MDRD equation for estimated GFR is not valid for patients less than 18 years of age. Additional information may be found at [email or web address]. 40 Elevated levels of HbA1c suggest the need for more aggressive treatment of glycemia. The [place] [employer] recommends that a primary goal of therapy should be a HbA1c of <7% and that physicians should re-evaluate the treatment regimen in patients with HbA1c values consistently >8%. 41 Elevated levels of HbA1c suggest the need for more aggressive treatment of glycemia. The [place] [employer] recommends that a primary goal of therapy should be a HbA1c of <7% and that physicians should re-evaluate the treatment regimen in patients with HbA1c values consistently >8%. 42 Note: Persistent reduction for 3 months or more in an eGFR <60 mL/min/1.73 m2 defines CKD. Patients with eGFR values >/=60 mL/min/1.73 m2 may also have CKD if evidence of persistent proteinuria is present. The original MDRD equation for estimated GFR is not valid for patients less than 18 years of age. Additional information may be found at [email or web address]. 43 Values below the stated reference ranges of AST and ALT can be seen in normal populations. Clinical correlation is suggested. 44 E11.9 I10 45 Elevated levels of HbA1c suggest the need for more aggressive treatment of glycemia. The [place] [employer] recommends that a primary goal of therapy should be a HbA1c of <7% and that physicians should re-evaluate the treatment regimen in patients with HbA1c values consistently >8%. 46 Note: Persistent reduction for 3 months or more in an eGFR <60 mL/min/1.73 m2 defines CKD. Patients with eGFR values >/=60 mL/min/1.73 m2 may also have CKD if evidence of persistent proteinuria is present. The original MDRD equation for estimated GFR is not valid for patients less than 18 years of age. Additional information may be found at [email or web address]. 47 Values below the stated reference ranges of AST and ALT can be seen in normal populations. Clinical correlation is suggested. 48 Reference Guidelines*: Desirable: ........... < 200 mg/dL Borderline High: ..... 200-239 mg/dL High: ................ >=240 mg/dL * The National Cholesterol Education Program (NCEP) 49 Reference Guidelines*: Low HDL: ..... < 40 mg/dL Normal: ..... 40-60 mg/dL Desirable: ... > 60 mg/dL *The National Cholesterol Education Program(NCEP) 50 Reference Guidelines*: Optimal:........... <100 mg/dL Near Optimal....... 100-129 mg/dL Borderline High.... 130-159 mg/dL High............... 160-189 mg/dL Very High.......... >=190 mg/dL * Source: National Cholesterol Education Program (NCEP) 51 Reference Guidelines*: Normal: ............. < 150 mg/dL Borderline High: .... 150-199 mg/dL High: ............... 200-499 mg/dL Very High: .......... > 500 mg/dL * Source: National Cholesterol Education Program (NCEP) 52 E11.9 53 Elevated levels of HbA1c suggest the need for more aggressive treatment of glycemia. The [place] [employer] recommends that a primary goal of therapy should be a HbA1c of <7% and that physicians should re-evaluate the treatment regimen in patients with HbA1c values consistently >8%. 54 Elevated levels of HbA1c suggest the need for more aggressive treatment of glycemia. The [place] [employer] recommends that a primary goal of therapy should be a HbA1c of <7% and that physicians should re-evaluate the treatment regimen in patients with HbA1c values consistently >8%. 55 Reference Guidelines*: Desirable: ........... < 200 mg/dL Borderline High: ..... 200-239 mg/dL High: ................ >=240 mg/dL * The National Cholesterol Education Program (NCEP) 56 Reference Guidelines*: Low HDL: ..... < 40 mg/dL Normal: ..... 40-60 mg/dL Desirable: ... > 60 mg/dL *The National Cholesterol Education Program(NCEP) 57 Reference Guidelines*: Optimal:........... <100 mg/dL Near Optimal....... 100-129 mg/dL Borderline High.... 130-159 mg/dL High............... 160-189 mg/dL Very High.......... >=190 mg/dL * Source: National Cholesterol Education Program (NCEP) 58 Reference Guidelines*: Normal: ............. < 150 mg/dL Borderline High: .... 150-199 mg/dL High: ............... 200-499 mg/dL Very High: .......... > 500 mg/dL * Source: National Cholesterol Education Program (NCEP) 59 Note: Persistent reduction for 3 months or more in an eGFR <60 mL/min/1.73 m2 defines CKD. Patients with eGFR values >/=60 mL/min/1.73 m2 may also have CKD if evidence of persistent proteinuria is present. The original MDRD equation for estimated GFR is not valid for patients less than 18 years of age. Additional information may be found at [email or web address]. 60 Values below the stated reference ranges of AST and ALT can be seen in normal populations. Clinical correlation is suggested. 61 Reference Guidelines*: Desirable: ........... < 200 mg/dL Borderline High: ..... 200-239 mg/dL High: ................ >=240 mg/dL * The National Cholesterol Education Program (NCEP) 62 Reference Guidelines*: Low HDL: ..... < 40 mg/dL Normal: ..... 40-60 mg/dL Desirable: ... > 60 mg/dL *The National Cholesterol Education Program(NCEP) 63 Reference Guidelines*: Optimal:........... <100 mg/dL Near Optimal....... 100-129 mg/dL Borderline High.... 130-159 mg/dL High............... 160-189 mg/dL Very High.......... >=190 mg/dL * Source: National Cholesterol Education Program (NCEP) 64 Reference Guidelines*: Normal: ............. < 150 mg/dL Borderline High: .... 150-199 mg/dL High: ............... 200-499 mg/dL Very High: .......... > 500 mg/dL * Source: National Cholesterol Education Program (NCEP) 65 Elevated levels of HbA1c suggest the need for more aggressive treatment of glycemia. The [place] [employer] recommends that a primary goal of therapy should be a HbA1c of <7% and that physicians should re-evaluate the treatment regimen in patients with HbA1c values consistently >8%. 66 Elevated levels of HbA1c suggest the need for more aggressive treatment of glycemia. The [place] [employer] recommends that a primary goal of therapy should be a HbA1c of <7% and that physicians should re-evaluate the treatment regimen in patients with HbA1c values consistently >8%. 67 Note: Persistent reduction for 3 months or more in an eGFR <60 mL/min/1.73 m2 defines CKD. Patients with eGFR values >/=60 mL/min/1.73 m2 may also have CKD if evidence of persistent proteinuria is present. The original MDRD equation for estimated GFR is not valid for patients less than 18 years of age. Additional information may be found at [email or web address]. 68 Values below the stated reference ranges of AST and ALT can be seen in normal populations. Clinical correlation is suggested. 69 Reference Guidelines*: Desirable: ........... < 200 mg/dL Borderline High: ..... 200-239 mg/dL High: ................ >=240 mg/dL * The National Cholesterol Education Program (NCEP) 70 Reference Guidelines*: Low HDL: ..... < 40 mg/dL Normal: ..... 40-60 mg/dL Desirable: ... > 60 mg/dL *The National Cholesterol Education Program(NCEP) 71 Reference Guidelines*: Optimal:........... <100 mg/dL Near Optimal....... 100-129 mg/dL Borderline High.... 130-159 mg/dL High............... 160-189 mg/dL Very High.......... >=190 mg/dL * Source: National Cholesterol Education Program (NCEP) 72 Reference Guidelines*: Normal: ............. < 150 mg/dL Borderline High: .... 150-199 mg/dL High: ............... 200-499 mg/dL Very High: .......... > 500 mg/dL * Source: National Cholesterol Education Program (NCEP) 73 Elevated levels of HbA1c suggest the need for more aggressive treatment of glycemia. The [place] [employer] recommends that a primary goal of therapy should be a HbA1c of <7% and that physicians should re-evaluate the treatment regimen in patients with HbA1c values consistently >8%. 74 Elevated levels of HbA1c suggest the need for more aggressive treatment of glycemia. The [place] [employer] recommends that a primary goal of therapy should be a HbA1c of <7% and that physicians should re-evaluate the treatment regimen in patients with HbA1c values consistently >8%. 75 Note: Persistent reduction for 3 months or more in an eGFR <60 mL/min/1.73 m2 defines CKD. Patients with eGFR values >/=60 mL/min/1.73 m2 may also have CKD if evidence of persistent proteinuria is present. The original MDRD equation for estimated GFR is not valid for patients less than 18 years of age. Additional information may be found at [email or web address]. 76 Values below the stated reference ranges of AST and ALT can be seen in normal populations. Clinical correlation is suggested. 77 Reference Guidelines*: Desirable: ........... < 200 mg/dL Borderline High: ..... 200-239 mg/dL High: ................ >=240 mg/dL * The National Cholesterol Education Program (NCEP) 78 Reference Guidelines*: Low HDL: ..... < 40 mg/dL Normal: ..... 40-60 mg/dL Desirable: ... > 60 mg/dL *The National Cholesterol Education Program(NCEP) 79 Reference Guidelines*: Optimal:........... <100 mg/dL Near Optimal....... 100-129 mg/dL Borderline High.... 130-159 mg/dL High............... 160-189 mg/dL Very High.......... >=190 mg/dL * Source: National Cholesterol Education Program (NCEP) 80 Reference Guidelines*: Normal: ............. < 150 mg/dL Borderline High: .... 150-199 mg/dL High: ............... 200-499 mg/dL Very High: .......... > 500 mg/dL * Source: National Cholesterol Education Program (NCEP) 81 Elevated levels of HbA1c suggest the need for more aggressive treatment of glycemia. The [place] [employer] recommends that a primary goal of therapy should be a HbA1c of <7% and that physicians should re-evaluate the treatment regimen in patients with HbA1c values consistently >8%. 82 Elevated levels of HbA1c suggest the need for more aggressive treatment of glycemia. The [place] [employer] recommends that a primary goal of therapy should be a HbA1c of <7% and that physicians should re-evaluate the treatment regimen in patients with HbA1c values consistently >8%. 83 Note: Persistent reduction for 3 months or more in an eGFR <60 mL/min/1.73 m2 defines CKD. Patients with eGFR values >/=60 mL/min/1.73 m2 may also have CKD if evidence of persistent proteinuria is present. The original MDRD equation for estimated GFR is not valid for patients less than 18 years of age. Additional information may be found at [email or web address]. 84 Note: Persistent reduction for 3 months or more in an eGFR <60 mL/min/1.73 m2 defines CKD. Patients with eGFR values >/=60 mL/min/1.73 m2 may also have CKD if evidence of persistent proteinuria is present. The original MDRD equation for estimated GFR is not valid for patients less than 18 years of age. Additional information may be found at [email or web address]. 85 A1c value between 5.7% and 6.4% is considered at increased risk for diabetes. A1c value greater than 6.5 % is considered essentially diagnostic for Type II diabetes. Current guidelines recommend a treatment goal of <7% for diabetic patients. This method will measure glycosylated hemoglobin variants, HbS, HbG, HbH, HbWayne, HbC, HbE, etc. Other hemoglobin- opathies may give incorrect results with this test. 86 Note: Persistent reduction for 3 months or more in an eGFR <60 mL/min/1.73 m2 defines CKD. Patients with eGFR values >/=60 mL/min/1.73 m2 may also have CKD if evidence of persistent proteinuria is present. The original MDRD equation for estimated GFR is not valid for patients less than 18 years of age. Additional information may be found at [email or web address]. 87 A1c value between 5.7% and 6.4% is considered at increased risk for diabetes. A1c value greater than 6.5 % is considered essentially diagnostic for Type II diabetes. Current guidelines recommend a treatment goal of <7% for diabetic patients. This method will measure glycosylated hemoglobin variants, HbS, HbG, HbH, HbWayne, HbC, HbE, etc. Other hemoglobin- opathies may give incorrect results with this test. 88 Note: Persistent reduction for 3 months or more in an eGFR <60 mL/min/1.73 m2 defines CKD. Patients with eGFR values >/=60 mL/min/1.73 m2 may also have CKD if evidence of persistent proteinuria is present. The original MDRD equation for estimated GFR is not valid for patients less than 18 years of age. Additional information may be found at [email or web address]. 89 Note: Persistent reduction for 3 months or more in an eGFR <60 mL/min/1.73 m2 defines CKD. Patients with eGFR values >/=60 mL/min/1.73 m2 may also have CKD if evidence of persistent proteinuria is present. The original MDRD equation for estimated GFR is not valid for patients less than 18 years of age. Additional information may be found at [email or web address]. Procedures Date Code Description Status 10/09/2018 [id number] Diabetic Retinal Eye Exam Completed 06/05/2018 [id number] Diabetic Retinal Eye Exam Completed 02/04/2018 [id number] Diabetic Retinal Eye Exam Completed 04/29/2015 35415 Pure Tone Hearing Test, Air Completed 04/28/2013 [id number] Collection Of Blood, Stick(Finger, Heel, Ear Stick) Completed 11/12/2012 [id number] Pure Tone-Air Condition Only Completed 12/18/2011 28049 EKG Tracing & Interpretation Completed 12/11/2011 [id number] Pure Tone-Air Condition Only Completed Encounters Type Date Location Provider Dx Diagnosis Office Visit 07/24/2018 [facility] Sandeep N20.9 Urinary calculus, 2:30p MD Marcin unspecified I10 Essential (primary) hypertension Office Visit 05/31/2018 9:30a [facility] Sandeep Burch, Z00.01 Encounter for Care general adult medical exam w abnormal findings E11.9 Type 2 diabetes mellitus without complications I10 Essential (primary) hypertension E78.5 Hyperlipidemia, unspecified E55.9 Vitamin D deficiency, unspecified E03.9 Hypothyroidism, unspecified Plan of Treatment Future Appointment(s):02/14/2019 10:00 am - Sandeep Burch MD at [facility]11/15/2018 - Sandeep Burch MDQ13.1 Absence of irisI10 Essential (primary) rukcnukszfduN98.9 Type 2 diabetes mellitus without jkrfhtzpbpnrfG51.9 Hypothyroidism, unspecified
[2018-12-11 14:21] VITALS: BP 153/87
[2018-12-11] MEDS ORDERED: Acetaminophen TAB* 325 MG PO ONE (15:15)
[2018-12-11] MEDS ORDERED: Ondansetron ODT TAB* 4 MG PO ONE (15:15)
--- NOTE | 2018-12-11 15:48 | UC ---
Abdominal Pain Male HPI - HPI Summary HPI Summary: Pt presnts with c/o sudden onset of left Lower abdominal pain, nausea, and vomiting that began last night and worsened today. - History of Current Complaint Chief Complaint: UCAbdominalPain Stated Complaint: VOMITTING,ABD PAIN Time Seen by Provider: 12/11/18 14:47 Hx Obtained From: Patient Onset/Duration: Sudden Onset, Lasting Hours, Worse Since - onset Severity Initially: Mild Severity Currently: Moderate Pain Intensity: 6 Location: Discrete At: LLQ Radiates: Yes Radiates to: LLQ Character: Aching, Dull Aggravating Factor(s): Nothing Alleviating Factor(s): Nothing Associated Signs And Symptoms: Positive: Decreased Appetite, Nausea, Vomiting - Risk Factors Testicular Torsion: Negative Cardiac Risk Factors: Diabetes - Allergies/Home Medications Allergies/Adverse Reactions: Allergies Allergy/AdvReac Type Severity Reaction Status Date / Time Penicillins Allergy Unknown Verified 12/11/18 14:17 Reaction Details Home Medications: Home Medications Dorzolamide/Timolol OPTH (NF) [Cosopt (NF)] 1 drop BOTH EYES BID 12/11/18 [ History Confirmed 12/11/18] Levothyroxine TAB* [Synthroid 25 MCG TAB*] 25 mcg PO DAILY 12/11/18 [History Confirmed 12/11/18] PMH/Surg Hx/FS Hx/Imm Hx Previously Healthy: Yes Endocrine History: Diabetes - Surgical History Surgical History: Yes Surgery Procedure, Year, and Place: Right Eye Chilation, 11/29/18; glaucoma valves--bilat - Family History Known Family History: Positive: Hypertension Negative: Diabetes - Social History Occupation: Disabled Lives: With Family Alcohol Use: None Substance Use Type: None Smoking Status (MU): Never Smoked Tobacco Have You Smoked in the Last Year: No Household Exposure Type: Cigarettes - Immunization History Most Recent Influenza Vaccination: none Vaccination Up to Date: Yes Review of Systems All Other Systems Reviewed And Are Negative: Yes Constitutional: Positive: Negative Skin: Positive: Negative Eyes: Positive: Negative ENT: Positive: Negative Respiratory: Positive: Negative Cardiovascular: Positive: Negative Gastrointestinal: Positive: Abdominal Pain, Vomiting, Nausea Genitourinary: Positive: Negative Motor: Positive: Negative Neurovascular: Positive: Negative Musculoskeletal: Positive: Negative Neurological: Positive: Negative Psychological: Positive: Negative Is Patient Immunocompromised?: No Physical Exam Triage Information Reviewed: Yes Appearance: Ill-Appearing, Pain Distress Vital Signs: Initial Vital Signs Temp 97.4 F 12/11/18 14:14 Pulse 57 12/11/18 14:14 Resp 16 12/11/18 14:14 BP 153/87 12/11/18 14:14 Pulse Ox 99 12/11/18 14:14 Vital Signs Reviewed: Yes Eye Exam: Normal ENT Exam: Normal Dental Exam: Normal Neck exam: Normal Respiratory Exam: Normal Cardiovascular Exam: Normal Abdominal Exam: Normal Abdomen Description: Positive: Nontender Musculoskeletal Exam: Normal Neurological Exam: Normal Psychological Exam: Normal Skin Exam: Normal Diagnostics - Radiology No standard instances Radiology Interpretation Completed By: Radiologist - IMPRESSION: 1. Left-sided hydronephrosis with no perinephric fluid collection. A 3 mm calculus is seen at the left ureterovesicular junction. 2. Premature calcified atherosclerotic plaque along coronary arteries and abdominal aorta. Recommend elective correlation with cholesterol levels. Abd Pain Male Course/Dx - Differential Dx/Clinical Impression Differential Diagnosis/HQI/PQRI: Diverticulitis, Ureteral Stone, Urinary Tract Infection Provider Diagnosis: Kidney stone on left side Discharge - Sign-Out/Discharge Documenting (check all that apply): Patient Departure All imaging exams completed and their final reports reviewed: Yes - Discharge Plan Condition: Stable Disposition: HOME Prescriptions: Ondansetron TAB* [Zofran 4 MG Tab*] 4 mg PO Q6H PRN #20 tab PRN Reason: Nausea Sulfamethox/Trimethoprim DS* [Bactrim DS 800/160 TAB*] 1 tab PO Q12H #14 tab Tamsulosin CAP* [Flomax CAP*] 0.4 mg PO DAILY #4 cap Patient Education Materials: Kidney Stones (ED) Referrals: Sandeep Burch MD [Primary Care Provider] - As Soon As Possible Adam De Oliveira MD [Medical Doctor] - As Soon As Possible Maximo Bingham MD [Medical Doctor] - As Soon As Possible Additional Instructions: Please follow up with your PCP and a Urologist as soon as possible. - Billing Disposition and Condition Condition: STABLE Disposition: Home - Attestation Statements Provider Attestation: Per institutional requirements, I have reviewed the chart, however, I was not consulted specifically or made aware of this patient by the midlevel provider. I did not personally evaluate, interact with , or disposition this patient.
== END 2018-12-11 16:10 | disposition home or self-care (01) ==
LOC: UCCORT 14:02
DX: N13.2 Hydronephrosis with renal and ureteral calculous obstruction (principal); R11.2 Nausea with vomiting, unspecified; E11.9 Type 2 diabetes mellitus without complications; Z88.0 Allergy status to penicillin
CPT/HCPCS: 74018; 74176; 81003; 87086; 99212; A9270-GY; G0463